=== PATIENT | female | born 1940 | race Caucasian/White ===

== ENCOUNTER 2018-08-10 19:13 | Emergency (ER) | payer MEDICARE, OTHER ==
[2018-08-10 19:57] VITALS: TEMP 98.9; O2SAT 99
--- NOTE | 2018-08-10 20:18 | CT ---
EXAM DESCRIPTION: Abdoment/Pelvis w/o Contrast CLINICAL HISTORY: 77 years Female RUQ pain COMPARISON: None TECHNIQUE: Images were obtained in axial, sagittal, and coronal planes. No intravenous contrast was administered. This exam was performed according to our departmental dose-optimization program which includes use of Automated Exposure Control, adjustment of the mA and/or kV according to patient size and/or use of iterative reconstruction technique. FINDINGS: No abnormality involving the liver, spleen, pancreas, and adrenal glands bilaterally. Prior cholecystectomy. Additional surgical clips in region of lesser sac. Common bile duct measures 1 cm in the region of the head of the. No obstructing renal calcifications bilaterally. Punctate nonobstructing calcifications right kidney. No hydronephrosis bilaterally. Unremarkable bladder. Appendix not well identified however no secondary signs for appendicitis. No bowel obstruction, perforation, or inflammation. Moderately distended small and large bowel loops likely ileus. Calcification abdominal aorta with no dilatation seen. No adenopathy. No abnormality lower lungs bilaterally. Small hiatal hernia. No acute osseous abnormality. Gluteal calcifications bilaterally. Postsurgical changes L4-5 and L5-S1 intervertebral discs. IMPRESSION: No acute intra-abdominal abnormality. Suspected mild ileus. Electronically signed by: Abigail Huerta MD 08/10/2018 8:15 PM CDT
--- NOTE | 2018-08-10 21:10 | ED.PDOC ---
History of Present Illness - General Chief Complaint: Abdominal Pain Stated Complaint: RUQ pain Time Seen by Provider: 08/10/18 21:01 Information Source: patient Exam Limitations: no limitations - History of Present Illness Initial Comments: Andree Orozco 77 y/o female came ER with sharp RUQ pain since last night felt nauseated but no vomiting has regular bowel movement,no dysuria,no hematuria,no relation to food intake.She was seen initially at [facility] and blood work done were all normal.But came to er since symptoms not better.Stated has history of peptic ulcer in the past and had EGD and colonoscopy.Had diarrhea 3 x today. Abdominal Pain Onset Location: RUQ Pain Radiation: no radiation Quality: moderate, sharpness Timing/Duration: 7-24 hours, intermittent Improving Factors: nothing Worsening Factors: nothing Associated Symptoms: diarrhea, nausea/vomiting Review of Systems - Review of Systems Constitutional: States: no symptoms reported EENTM: States: no symptoms reported Respiratory: States: no symptoms reported Cardiology: States: no symptoms reported Gastrointestinal/Abdominal: States: see HPI Genitourinary: States: no symptoms reported Musculoskeletal: States: no symptoms reported All other Systems: Reviewed and Negative, No Change from Baseline Past Medical History (General) - Patient Medical History Hx Seizures: No Hx Stroke: No Hx Dementia: No Hx Asthma: No Hx of COPD: No Hx Cardiac Disorders: No Hx Congestive Heart Failure: No Hx Pacemaker: No Hx Hypertension: No Hx Thyroid Disease: No Hx Diabetes: No Hx Gastroesophageal Reflux: No Hx Renal Disease: No Hx Cancer: No Hx of HIV: No Hx Hepatitis C: No Hx MRSA: No Hx Other PMH: Yes - idiopathic purpura Surgical History: appendectomy, cholecystectomy, tonsillectomy, other - hysterectomy;spine-neck/back lumbar - Social History Hx Alcohol Use: No - Activities of Daily Living Patient Lives Alone: Yes Grooming Ability: Independent Eating (Feeding) Ability: Independent Toileting Ability: Independent Family Medical History - Family History Mother Family History: Unknown Hx Family Congestive Heart Failure: Yes - mom Hx Family;Other: sister SLE;Brother-Alzheimers Physical Exam - Physical Exam General Appearance: Alert, Anxious, No apparent distress Eyes, Ears, Nose, Throat Exam: normal ENT inspection Neck: non-tender, full range of motion, supple, normal inspection Respiratory: chest non-tender, lungs clear, normal breath sounds Cardiovascular/Chest: normal peripheral pulses, regular rate, rhythm, no murmur Peripheral Pulses: No deficit Gastrointestinal/Abdominal: soft, no organomegaly, tenderness - RUQ no peritoneal signs Back Exam: no CVA tenderness, no vertebral tenderness Extremity: no pedal edema, no calf tenderness Neurologic: alert, oriented x 3 Progress - Progress Progress: 08/10/18 21:21 08/10/18 21:05 IV Care:Saline Lock per Protoc QSHIFT TROPONIN-I Stat Laboratory Results - last 24 hr 08/10/18 08/10/18 20:07 20:07 WBC 6.2 RBC 4.42 Hgb 13.5 Hct 39.4 MCV 89.2 MCH 30.5 MCHC 34.2 RDW 12.5 Plt Count 244 MPV 8.9 Absolute Neuts (auto) 4.00 Absolute Lymphs (auto) 1.70 Absolute Monos (auto) 0.50 Absolute Eos (auto) 0.00 Absolute Basos (auto) 0.00 Neutrophils % 64.6 Lymphocytes % 26.8 Monocytes % 7.6 Eosinophils % 0.4 L Basophils % 0.6 Sodium 134 L Potassium 3.5 L Chloride 101 Carbon Dioxide 21 Anion Gap 15.5 BUN 15 Creatinine 0.80 BUN/Creatinine Ratio 18.8 Random Glucose 100 Serum Osmolality 269.2 L Calcium 9.2 Total Bilirubin 0.8 AST 22 ALT 36 Alkaline Phosphatase 134 H Serum Total Protein 6.5 Albumin 3.8 Globulin 2.7 Albumin/Globulin Ratio 1.4 Lipase 32 08/10/18 21:45 Patient stated not allergic to Morphine it will just make her nauseated;So she will be given phenergan with it. 08/10/18 23:07 Discuss all test result with patient and daughter no changes from repeat test done here from previous ones that was done in [facility];she stated feeling better RUQ pain almost gone.No adverse effect after morphine injection - Results/Orders Results/Orders: Vital Signs - 8 hr 08/10/18 19:30 Temperature 98.9 F Pulse Rate [ 72 monitor] Respiratory 20 Rate Blood Pressure 143/76 [Left Arm] O2 Sat by Pulse 99 Oximetry - EKG/XRAY/CT CT Ordered: Yes - mild ileus no other abnormalities noted Departure - Departure Clinical Impression: Abdominal pain Qualifiers: Abdominal location: right upper quadrant Qualified Code(s): R10.11 - Right upper quadrant pain Time of Disposition: 23:10 Disposition: Discharge to Home or Self Care Condition: Fair Departure Forms: ED Discharge - Pt. Copy, Patient Portal Self Enrollment Instructions: DI for Abdominal Pain-Adult, [place] Diet Diet: bland diet, other - Avoid greasy spicy foods until better Additional Instructions: Follow up with primary Md in am 11 August 2018 for recheck;Return to ER as needed;Continue with all home medications
[2018-08-10] MEDS ORDERED: PANTOPRAZOLE SOD SUSP 40 MG PCKT PO ONE (21:44)
[2018-08-10] MEDS ORDERED: MORPHINE SULFATE INJ 10 MG/ML VIAL IM ONE (21:44)
[2018-08-10] MEDS ORDERED: PROMETHAZINE HCL INJ 25 MG/ML VIAL IM ONE (21:44)
[2018-08-10] MEDS ORDERED: SUCRALFATE 1 GM/10 ML 1 GM UD PO ONE (21:44)
[2018-08-10] MEDS ORDERED: PANTOPRAZOLE SODIUM TAB 40 MG PO ONE ×2 (21:53→21:55)
[2018-08-10 23:13] VITALS: BP 133/62
[2018-08-10] MEDS ORDERED: PROMETHAZINE TAB (ER DISP) 25 MG TAB PO ONE (23:13)
== END 2018-08-10 23:55 | disposition home or self-care (01) ==
LOC: ER 19:13
DX: R10.11 Right upper quadrant pain (principal); R19.7 Diarrhea, unspecified; R11.0 Nausea; Z87.11 Personal history of peptic ulcer disease; Z90.49 Acquired absence of other specified parts of digestive tract
CPT/HCPCS: 36415; 74176; 80053; 83690; 84484; 85025; J2270; J2550; Q0169

== ENCOUNTER 2018-09-05 14:21 | Emergency (ER) | payer OTHER ==
--- NOTE | 2018-09-05 14:38 | ED.PDOC ---
History of Present Illness - General Chief Complaint: Back Pain or Injury Stated Complaint: back pain/headache Time Seen by Provider: 09/05/18 14:38 Exam Limitations: no limitations - History of Present Illness Initial Comments: Andree Orozco 77 y/o female came to ER stating she was about to play bingo with friends at the custodial and went to sit on her husbands walker but slipped off fell on her back to the floor and back of head also hit the floor .Has dull headache back of head ; sharp pelvic pains non radiating.No LOC,no N/v,no blurry vision.Remembers incident. Occurred: just prior to arrival Severity: moderate Injuries/Pain Location: head, back Reason for Fall: slipped Loss of Consciousness: no loss of consciousness Improving Factors: rest Worsening Factors: movement Associated Symptoms (Fall): other - pain Allergies/Adverse Reactions: Allergies Alendronate [From Fosamax] Allergy (Verified 08/10/18 21:52) Aspirin Allergy (Verified 08/10/18 21:52) Banana Allergy (Verified 08/10/18 21:52) Butorphanol [From Stadol] Allergy (Verified 08/10/18 21:52) Ceftriaxone [From Rocephin] Allergy (Verified 08/10/18 21:52) Cephalexin [From Keflex] Allergy (Verified 08/10/18 21:52) Chloroquine [From Aralen] Allergy (Verified 08/10/18 21:52) Cimetidine [From Tagamet HB] Allergy (Verified 08/10/18 21:52) Ciprofloxacin [From Cipro] Allergy (Verified 08/10/18 21:52) Clarithromycin [From Biaxin] Allergy (Verified 08/10/18 21:52) Codeine Allergy (Verified 08/10/18 21:52) Diazepam [From Valium] Allergy (Verified 08/10/18 21:52) Doxycycline [From Vibramycin] Allergy (Verified 08/10/18 21:52) Eggs or Egg-derived Products Allergy (Verified 08/10/18 21:52) Fluphenazine [From Prolixin] Allergy (Verified 08/10/18 21:52) Iodine Allergy (Verified 08/10/18 21:52) Ketoprofen [From Orudis] Allergy (Verified 08/10/18 21:52) Ketorolac Tromethamine [From Toradol] Allergy (Verified 08/10/18 21:52) Metoclopramide [From Reglan] Allergy (Verified 08/10/18 21:52) Nalbuphine [From Nubain] Allergy (Verified 08/10/18 21:52) Naproxen Allergy (Verified 08/10/18 21:52) Penicillins Allergy (Verified 08/10/18 19:49) Pentazocine [From Talwin Compound] Allergy (Verified 08/10/18 21:52) Sulfa Antibiotics Allergy (Verified 08/10/18 21:52) Tetracycline Allergy (Verified 08/10/18 21:52) Topiramate [From Topamax] Allergy (Verified 08/10/18 21:52) cholestrol medications Allergy (Uncoded 08/10/18 21:52) coffee Allergy (Uncoded 08/10/18 21:52) milk Allergy (Uncoded 08/10/18 21:52) tape Allergy (Uncoded 08/10/18 21:52) Review of Systems - Review of Systems Musculoskeletal: States: see HPI, back pain Neurological: States: see HPI, headache All other Systems: Reviewed and Negative, No Change from Baseline Past Medical History (General) - Patient Medical History Hx Seizures: No Hx Stroke: No Hx Dementia: No Hx Asthma: No Hx of COPD: No Hx Cardiac Disorders: No Hx Congestive Heart Failure: No Hx Pacemaker: No Hx Hypertension: No Hx Thyroid Disease: No Hx Diabetes: No Hx Gastroesophageal Reflux: No Hx Renal Disease: No Hx Cancer: No Hx of HIV: No Hx Hepatitis C: No Hx MRSA: No Surgical History: appendectomy, cholecystectomy, other - spine- neck;lumbar;hysterectomy - Social History Hx Alcohol Use: No Physical Exam - Physical Exam General Appearance: Alert, Comfortable, No apparent distress Head Injury: no evidence of injury Eye Exam: bilateral normal ENT Exam: hearing grossly normal, no evidence of ENT injury, no dental injury Peripheral Pulses: radial,right: 2+, radial,left: 2+ Cardiovascular/Respiratory: regular rate, rhythm, no M/R/G, normal peripheral pulses, no JVD, normal breath sounds Gastrointestinal/Abdominal: normal bowel sounds, non tender, soft, no organomegaly Back Exam: no CVA tenderness, no vertebral tenderness Extremity Exam: pelvis stable, bony-point tenderness - both hips Neurologic: alert, oriented x 3 Skin Exam: normal color, warm/dry - Lorton Coma Score Best Eye Response (Lorton): (4) open spontaneously Best Verbal Response (Sancho): (5) oriented Best Motor Response (Sancho): (6) obeys commands Lorton Total: 15 Progress - EKG/XRAY/CT XRAY: pelvis - no fracture hips/pelvis CT Ordered: Yes - head-no acute abnormalities Departure - Departure Clinical Impression: Contusion of lower back and pelvis, initial encounter Fall Qualifiers: Encounter type: initial encounter Qualified Code(s): W19.XXXA - Unspecified fall, initial encounter Contusion of head Qualifiers: Encounter type: initial encounter Contusion of head detail: scalp Qualified Code(s): S00.03XA - Contusion of scalp, initial encounter Time of Disposition: 15:43 Disposition: Discharge to Home or Self Care Condition: Fair Departure Forms: ED Discharge - Pt. Copy, Patient Portal Self Enrollment Instructions: Contusion (DC) Additional Instructions: Ice pack to affected area 15 minutes 3 x a day during WAKING HOURS ONLY until better as needed;Tyleno 500mg every 6 hours as needed for pain
--- NOTE | 2018-09-05 15:05 | RAD ---
EXAM DESCRIPTION: Pelvis CLINICAL HISTORY: 77 years Female, pain COMPARISON: None. FINDINGS: Two views of the pelvis demonstrates extensive dystrophic calcifications in the gluteal regions presumably from pressure ulcers or old injection sites. The bony pelvic ring is intact and the hips appear intact on AP and frog-leg views. The superior and inferior pubic rami and the acetabular contours appear normal. IMPRESSION: Negative pelvis two views. Electronically signed by: John Mendez MD 09/05/2018 3:03 PM CDT
[2018-09-05] MEDS ORDERED: PROCHLORPERAZINE INJ 10 MG/2 ML VIAL IV ONE (15:08)
[2018-09-05] MEDS ORDERED: MORPHINE SULFATE INJ 10 MG/ML VIAL IV ONE (15:08)
--- NOTE | 2018-09-05 15:18 | CT ---
EXAM DESCRIPTION: Head CLINICAL HISTORY: fall/headache COMPARISON: None available TECHNIQUE: Non contrast cranial CT This exam was performed according to our departmental dose-optimization program, which includes automated exposure control, adjustment of the mA and/or kV according to patient size and/or use of iterative reconstruction technique. FINDINGS: Ventricles and sulci are unremarkable for age. There is no hemorrhage or mass or subdural hematoma. There are no significant white matter abnormalities detected. The calvarium is unremarkable. The visualized paranasal sinuses and the mastoids are clear. IMPRESSION: 1. Normal CT head Electronically signed by: John Mendez MD 09/05/2018 3:16 PM CDT
[2018-09-05] MEDS ORDERED: PROMETHAZINE HCL INJ 25 MG/ML VIAL IM ONE (15:40)
[2018-09-05] MEDS ORDERED: MORPHINE SULFATE INJ 10 MG/ML VIAL IM ONE (15:40)
[2018-09-05 16:52] VITALS: BP 143/78; TEMP 96.9; O2SAT 99
== END 2018-09-05 16:00 | disposition home or self-care (01) ==
LOC: ER 14:21
DX: S00.03XA Contusion of scalp, initial encounter (principal); S30.0XXA Contusion of lower back and pelvis, initial encounter; Z88.8 Allergy status to other drugs, medicaments and biological substances; Z88.1 Allergy status to other antibiotic agents; Z88.5 Allergy status to narcotic agent; Z91.041 Radiographic dye allergy status; Z88.0 Allergy status to penicillin; Z88.2 Allergy status to sulfonamides; Z88.3 Allergy status to other anti-infective agents; Z88.6 Allergy status to analgesic agent; W18.30XA Fall on same level, unspecified, initial encounter; Y92.129 Unspecified place in nursing home as the place of occurrence of the external cause
CPT/HCPCS: 70450; 72170; J2270; J2550

== ENCOUNTER 2020-02-29 09:25 | Emergency (ER) | payer MEDICARE, OTHER ==
[2020-02-29] MEDS ORDERED: ACETAMINOPHEN 500 MG TAB PO ONE (09:39)
[2020-02-29] MEDS ORDERED: SODIUM CHLORIDE 0.9% 1000ML 1,000 ML IVS ONE (09:39)
[2020-02-29] MEDS ORDERED: SODIUM CHLORIDE 0.9% (FLUSH) 10 ML SYG IV PRN (09:39)
[2020-02-29] MEDS ORDERED: ONDANSETRON INJ 4 MG/2 ML VIAL IV ONE (09:39)
--- NOTE | 2020-02-29 09:44 | ED.PDOC ---
History of Present Illness - General Time Seen by Provider: 02/29/20 09:38 Source: patient, EMS - History of Present Illness Initial Comments: 79-year-old female who was brought in by EMS from [facility] for chief complaint of body aches and diarrhea. Patient reports onset of illness 1 day ago with gradual worsening. She reports constant aching discomfort to her entire body, moderate severity, no medications taken for relief. She additionally reports a couple episodes of watery diarrhea since last night as well as nausea without emesis. She denies any fevers, chills, chest pain, cough, shortness of breath, sore throat, abdominal pain, urinary symptoms, calf pain or swelling, neck stiffness. She additionally reports moderate generalized headache. Pt tested positive for COVID-19 at [facility] and was instructed to send to the ED for medical evaluation. There is now a COVID wing at the [facility] where patients who do not require inpatient hospitalization can be managed. Other residents at the [facility] have also recently been diagnosed with COVID-19 including her who is also there. Allergies/Adverse Reactions: Allergies Alendronate [From Fosamax] Allergy (Verified 02/29/20 09:41) Aspirin Allergy (Verified 02/29/20 09:41) Banana Allergy (Verified 02/29/20 09:41) Butorphanol [From Stadol] Allergy (Verified 02/29/20 09:41) Ceftriaxone [From Rocephin] Allergy (Verified 02/29/20 09:41) Cephalexin [From Keflex] Allergy (Verified 02/29/20 09:41) Chloroquine [From Aralen] Allergy (Verified 02/29/20 09:41) Cimetidine [From Tagamet HB] Allergy (Verified 02/29/20 09:41) Ciprofloxacin [From Cipro] Allergy (Verified 02/29/20 09:41) Clarithromycin [From Biaxin] Allergy (Verified 02/29/20 09:41) Codeine Allergy (Verified 02/29/20 09:41) Diazepam [From Valium] Allergy (Verified 02/29/20 09:41) Doxycycline [From Vibramycin] Allergy (Verified 02/29/20 09:41) Eggs or Egg-derived Products Allergy (Verified 02/29/20 09:41) Fluphenazine [From Prolixin] Allergy (Verified 02/29/20 09:41) Iodine Allergy (Verified 02/29/20 09:41) Ketoprofen [From Orudis] Allergy (Verified 02/29/20 09:41) Ketorolac Tromethamine [From Toradol] Allergy (Verified 02/29/20 09:41) Metoclopramide [From Reglan] Allergy (Verified 02/29/20 09:41) Nalbuphine [From Nubain] Allergy (Verified 02/29/20 09:41) Naproxen Allergy (Verified 02/29/20 09:41) Penicillins Allergy (Verified 02/29/20 09:41) Pentazocine [From Talwin Compound] Allergy (Verified 02/29/20 09:41) Sulfa Antibiotics Allergy (Verified 02/29/20 09:41) Tetracycline Allergy (Verified 02/29/20 09:41) Topiramate [From Topamax] Allergy (Verified 02/29/20 09:41) cholestrol medications Allergy (Uncoded 02/29/20 09:41) coffee Allergy (Uncoded 02/29/20 09:41) milk Allergy (Uncoded 02/29/20 09:41) tape Allergy (Uncoded 02/29/20 09:41) Review of Systems - Review of Systems Review of Systems: 02/29/20 09:43 as per HPI All other Systems: Reviewed and Negative Past Medical History (General) - Patient Medical History Hx Seizures: No Hx Stroke: No Hx Dementia: No Hx Asthma: No Hx of COPD: No Hx Cardiac Disorders: No Hx Congestive Heart Failure: No Hx Pacemaker: No Hx Hypertension: No Hx Thyroid Disease: No Hx Diabetes: No Hx Gastroesophageal Reflux: No Hx Renal Disease: No Hx Cancer: No Hx of HIV: No Hx Hepatitis C: No Hx MRSA: No - Vaccination History Hx Tetanus, Diphtheria Vaccination: No Hx Influenza Vaccination: No Hx Pneumococcal Vaccination: No - Social History Hx Tobacco Use: No Hx Alcohol Use: No Family Medical History - Family History Mother Family History: Unknown Hx Family Congestive Heart Failure: Yes - mom Hx Family;Other: sister SLE;Brother-Alzheimers Physical Exam - Physical Exam General Appearance: Alert, Comfortable, No apparent distress Eye Exam: bilateral normal Ears, Nose, Throat: hearing grossly normal, normal ENT inspection, normal pharynx Neck: non-tender, full range of motion, supple, normal inspection Respiratory: chest non-tender, lungs clear, normal breath sounds, no respiratory distress, no accessory muscle use Cardiovascular/Chest: normal peripheral pulses, regular rate, rhythm, no edema, no gallop, no JVD, no murmur Peripheral Pulses: radial,right: 2+, radial,left: 2+ Gastrointestinal/Abdominal: non tender, soft, no organomegaly Back Exam: normal inspection, no CVA tenderness, no vertebral tenderness Extremity: normal range of motion, non-tender, normal inspection, no pedal edema, no calf tenderness, normal capillary refill Neurologic: ophthalmologist II-XII nml as tested, no motor/sensory deficits, alert, normal mood/affect, oriented x 3 Skin Exam: normal color, warm/dry Lymphatic: other - Mild tender Left anterior cervical SUSHANT Progress - Progress Progress: 02/29/20 09:44 Diarrhea, weakness -suspect due to COVID-19. Consider also other viral gastroenteritis, viral infections, flu, UTI, diverticulitis, colitis, other -pt stable, temp 99.2 F, SpO2 99% RA, vitals otherwise stable -obtain flu swab, UA, bloodwork, CXR -1 L NS bolus, Tylenol 1000 mg PO, Zofran 4 mg IV, reassess 02/29/20 10:48 -Pt has remained stable in the ED. Feeling a little better with ED treatment. Able to ambulate to bathroom independently and urinated x1. Labs reveal leukopenia and lymphocytic shift (c/w known COVID-19 infection). Flu testing negative. CMP with mild hypokalemia (replenished orally in ED), otherwise largely unremarkable. -Discussed all findings and diagnosis of COVID-19 infection with patient as well as expected clinical course and continued supportive care at the [facility]. I feel currently she is stable for discharge back to the [facility] for continued management. If the patient decompensates further or develops any other concerning symptoms, she may come back to the emergency room for repeat evaluation. Discharged back to [facility] in good condition, return warnings discussed at length. Jaziel Hamilton MD Billing #[id number] 02/29/20 09:39 Telemetry .ONCE Sodium Chloride 0.9% (Flush) [Saline Flush Syringe] 10 ml IV PRN PRN URINALYSIS Stat Laboratory Results - last 24 hr 02/29/20 02/29/20 09:45 09:45 WBC 2.9 L RBC 4.60 Hgb 14.3 Hct 41.7 MCV 90.5 MCH 31.1 H MCHC 34.3 RDW 12.7 Plt Count 245 MPV 8.6 Absolute Neuts (auto) 1.20 L Absolute Lymphs (auto) 1.30 Absolute Monos (auto) 0.40 Absolute Eos (auto) 0.00 Absolute Basos (auto) 0.00 Neutrophils % 40.6 L Lymphocytes % 44.9 Monocytes % 12.9 H Eosinophils % 0.3 L Basophils % 1.3 Sodium 136 Potassium 3.2 L Chloride 103 Carbon Dioxide 21 Anion Gap 15.2 BUN 9 Creatinine 0.54 L BUN/Creatinine Ratio 16.7 Random Glucose 93 Serum Osmolality 270.3 L Calcium 8.8 Total Bilirubin 0.4 AST 22 ALT 19 Alkaline Phosphatase 120 Serum Total Protein 6.7 Albumin 4.1 Globulin 2.6 Albumin/Globulin Ratio 1.6 - EKG/XRAY/CT XRAY: chest - no acute processes per my read Departure - Departure Clinical Impression: COVID-19 Time of Disposition: 10:48 Disposition: Discharge to SNF Condition: Good Instructions: Viral Gastroenteritis, Adult (DC), Coronavirus Disease 2019 (COVID-19) Diet: resume usual diet Activity: increase activity as tolerated Referrals: Jeffrey Saldana MD [Primary Care Provider] - 1-2 Weeks Additional Instructions: Remain well-hydrated and gradually advance your diet and activity level as tolerated. You may continue to take [id number] medications as needed for pain such as Tylenol 650 mg every 6 hours as needed and ibuprofen 600 mg every 6 hours as needed. To the ED develop concerning symptoms such as worsening abdominal pain, intractable nausea and vomiting, large volume or frequent diarrhea, chest pain shortness of breath, etc. Follow-up with your primary care physician is recommended in 3 to 5 days for repeat evaluation or sooner as needed. You will need to self quarantine for at least 10 to 14 days from the date of your positive COVID-19 test.
[2020-02-29 09:55] VITALS: O2SAT 98
--- NOTE | 2020-02-29 10:17 | RAD ---
EXAM DESCRIPTION: Chest,1 View CLINICAL HISTORY: COVID-19 positive, aching COMPARISON: None available FINDINGS: The cardiomediastinal silhouette is unremarkable. There is no airspace consolidation or pleural effusion. The bronchovascular markings are within normal limits, and the lungs are not hyperinflated. There is no pneumothorax or acute fracture. Postoperative changes in the cervical spine and right humerus, partially visualized. IMPRESSION: No radiographic evidence of pneumonia or other acute intrathoracic abnormality. Electronically signed by: Bonifacio Ley MD 02/29/2020 10:15 AM [facility]
[2020-02-29] MEDS ORDERED: POTASSIUM CHLORIDE 20 MEQ TAB PO ONE (10:31)
[2020-02-29 11:20] VITALS: TEMP 97.6
[2020-02-29 11:27] VITALS: BP 163/83
== END 2020-02-29 11:17 ==
LOC: ER 09:25
DX: U07.1 COVID-19 (principal); R19.7 Diarrhea, unspecified; E87.6 Hypokalemia
CPT/HCPCS: 36415; 71045; 80053; 85025; 87502; J2405; J7030

== ENCOUNTER 2020-03-09 22:34 | Emergency (ER) | payer MEDICARE, OTHER ==
--- NOTE | 2020-03-09 22:45 | ED.PDOC ---
History of Present Illness - General Time Seen by Provider: 03/09/20 22:36 Source: patient, RN notes reviewed, Vital Signs reviewed, EMS notes reviewed, EMS, long term records, old records Exam Limitations: no limitations - History of Present Illness Initial Comments: 79 yo pleasant F comes in from long term with the c/c of CP. Started about 2 hours ago. States she went to feed her dinner, and went to lay down when the pain started. Radiates from back to under right breast. pain constant, somewhat worse with deep inspriation, not worse with palpation. feels sharp in nature. no cardiac history. Was dx with covid 10 days ago. never had covid symptoms. denies sore throat, cough, sob. Allergies/Adverse Reactions: Allergies Alendronate [From Fosamax] Allergy (Verified 02/29/20 09:41) Aspirin Allergy (Verified 02/29/20 09:41) Banana Allergy (Verified 02/29/20 09:41) Butorphanol [From Stadol] Allergy (Verified 02/29/20 09:41) Ceftriaxone [From Rocephin] Allergy (Verified 02/29/20 09:41) Cephalexin [From Keflex] Allergy (Verified 02/29/20 09:41) Chloroquine [From Aralen] Allergy (Verified 02/29/20 09:41) Cimetidine [From Tagamet HB] Allergy (Verified 02/29/20 09:41) Ciprofloxacin [From Cipro] Allergy (Verified 02/29/20 09:41) Clarithromycin [From Biaxin] Allergy (Verified 02/29/20 09:41) Codeine Allergy (Verified 02/29/20 09:41) Diazepam [From Valium] Allergy (Verified 02/29/20 09:41) Doxycycline [From Vibramycin] Allergy (Verified 02/29/20 09:41) Eggs or Egg-derived Products Allergy (Verified 02/29/20 09:41) Fluphenazine [From Prolixin] Allergy (Verified 02/29/20 09:41) Iodine Allergy (Verified 02/29/20 09:41) Ketoprofen [From Orudis] Allergy (Verified 02/29/20 09:41) Ketorolac Tromethamine [From Toradol] Allergy (Verified 02/29/20 09:41) Metoclopramide [From Reglan] Allergy (Verified 02/29/20 09:41) Nalbuphine [From Nubain] Allergy (Verified 02/29/20 09:41) Naproxen Allergy (Verified 02/29/20 09:41) Penicillins Allergy (Verified 02/29/20 09:41) Pentazocine [From Talwin Compound] Allergy (Verified 02/29/20 09:41) Sulfa Antibiotics Allergy (Verified 02/29/20 09:41) Tetracycline Allergy (Verified 02/29/20 09:41) Topiramate [From Topamax] Allergy (Verified 02/29/20 09:41) cholestrol medications Allergy (Uncoded 02/29/20 09:41) coffee Allergy (Uncoded 02/29/20 09:41) milk Allergy (Uncoded 02/29/20 09:41) tape Allergy (Uncoded 02/29/20 09:41) Review of Systems - Review of Systems Constitutional: Denies: chills, fever, malaise EENTM: Denies: blurred vision, throat pain, mouth pain Respiratory: Denies: cough, short of breath, stridor Cardiology: States: chest pain. Denies: palpitations, syncope Gastrointestinal/Abdominal: Denies: abdominal pain, diarrhea, nausea, vomiting Genitourinary: Denies: frequency, hematuria Musculoskeletal: States: back pain. Denies: joint pain, muscle pain, neck pain Skin: Denies: change in color, rash Neurological: Denies: headache, seizure, tingling, tremors, weakness Endocrine: Denies: increased urine, unexplained weight gain, unexplained weight loss Hematologic/Lymphatic: Denies: blood clots, easy bleeding, easy bruising Past Medical History (General) - Patient Medical History Hx Seizures: No Hx Stroke: No Hx Dementia: No Hx Asthma: No Hx of COPD: No Hx Cardiac Disorders: No Hx Congestive Heart Failure: No Hx Pacemaker: No Hx Hypertension: No Hx Thyroid Disease: No Hx Diabetes: No Hx Gastroesophageal Reflux: No Hx Renal Disease: No Hx Cancer: No Hx of HIV: No Hx Hepatitis C: No Hx MRSA: No - Vaccination History Hx Tetanus, Diphtheria Vaccination: No Hx Influenza Vaccination: No Hx Pneumococcal Vaccination: No - Social History Hx Tobacco Use: No Hx Alcohol Use: No Family Medical History - Family History Mother Family History: Unknown Hx Family Congestive Heart Failure: Yes - mom Hx Family;Other: sister SLE;Brother-Alzheimers Physical Exam - Physical Exam General Appearance: Alert, Comfortable, No apparent distress, Well Developed, Well Groomed, Well Hydrated, Well Nourished Eyes, Ears, Nose, Throat Exam: PERRL/EOMI, normal ENT inspection, TMs normal Neck: non-tender, full range of motion, supple, normal inspection Respiratory: chest non-tender, lungs clear, normal breath sounds, no respiratory distress, no accessory muscle use Cardiovascular/Chest: normal peripheral pulses, regular rate, rhythm, no edema, no gallop, no JVD, no murmur Peripheral Pulses: radial,right: 2+, radial,left: 2+ Gastrointestinal/Abdominal: normal bowel sounds, non tender, soft, no organomegaly, no pulsatile mass, other - r flank pain. 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 03/10/20 01:14 cardiac score 3. given tylenol, magnesium and dexamethasone. Pain improved. The data reviewed when caring for this patient included: nurse notes, prior records, etc. The history and assessments from nurses notes were reviewed and considered, and the patient's home medication list was also reviewed and considered. My assessment and the results of testing completed here in the ED were discussed with the patient/family. All questions were answered, and they express understanding of my assessment and the plan. They have been instructed to return if their symptoms worsen, and have been asked to follow up with their primary care physician to recheck today's presenting complaint. Strict return precautions given. vss, patient discharged back to snf in stable condition. Mary Ellen Cavanaugh DO #[id number] 03/10/20 01:27 - Results/Orders Results/Orders: 03/09/20 22:38 Isolation:Airborne ONCE 03/09/20 22:45 EKG STAT Pulse Ox, Continuous Monitoring STAT 03/10/20 22:45 Pulse Ox, Continuous Monitoring STAT 03/11/20 22:45 Pulse Ox, Continuous Monitoring STAT Laboratory Results WBC 11.8 K/mm3 (4.8-10.8) H 03/09/20 23:00 RBC 4.46 M/mm3 (4.20-5.40) 03/09/20 23:00 Hgb 13.5 gm/dL (12.0-16.0) 03/09/20 23:00 Hct 39.9 % (36.0-47.0) 03/09/20 23:00 MCV 89.6 fl (81.0-99.0) 03/09/20 23:00 MCH 30.4 pg (27.0-31.0) 03/09/20 23:00 MCHC 33.9 g/dL (33.0-37.0) 03/09/20 23:00 RDW 12.8 % (11.5-14.5) 03/09/20 23:00 Plt Count 328 K/mm3 (130-400) 03/09/20 23:00 MPV 8.2 fl (7.40-10.4) 03/09/20 23:00 Absolute Neuts (auto) 9.60 K/uL (1.8-6.8) H 03/09/20 23:00 Absolute Lymphs (auto) 1.10 K/uL (1.0-3.4) 03/09/20 23:00 Absolute Monos (auto) 1.00 K/uL (0.2-0.8) H 03/09/20 23:00 Absolute Eos (auto) 0.00 K/uL (0.0-0.4) 03/09/20 23:00 Absolute Basos (auto) 0.10 K/uL (0.0-0.1) 03/09/20 23:00 Neutrophils % 81.7 % (42.0-78.0) H 03/09/20 23:00 Lymphocytes % 9.0 % (20.0-50.0) L 03/09/20 23:00 Monocytes % 8.7 % (2.0-9.0) 03/09/20 23:00 Eosinophils % 0.0 % (1.0-5.0) L 03/09/20 23:00 Basophils % 0.6 % (0.0-2.0) 03/09/20 23:00 PT 9.3 SECONDS (9.0-10.9) 03/09/20 23:00 INR 0.94 (0.9-1.15) 03/09/20 23:00 PTT (SP) 20.3 SECONDS (21.8-31.6) L 03/09/20 23:00 D-Dimer, Quantitative < 131.0 ng/ml (131-400) L 03/09/20 23:00 Sodium 132 mmol/L (135-145) L 03/09/20 23:00 Potassium 3.7 mmol/L (3.6-5.0) 03/09/20 23:00 Chloride 98 mmol/L (101-111) L 03/09/20 23:00 Carbon Dioxide 21 mmol/L (21-31) 03/09/20 23:00 Anion Gap 16.7 (12-18) 03/09/20 23:00 BUN 17 mg/dL (7-18) 03/09/20 23:00 Creatinine 0.60 mg/dL (0.6-1.3) 03/09/20 23:00 BUN/Creatinine Ratio 28.3 (10-20) H 03/09/20 23:00 Random Glucose 111 mg/dL (70-105) H 03/09/20 23:00 Serum Osmolality 266.8 mOsm/L (275-295) L 03/09/20 23:00 Calcium 8.9 mg/dL (8.4-10.2) 03/09/20 23:00 Magnesium 2.1 mg/dL (1.8-2.5) 03/09/20 23:00 Total Bilirubin 0.5 mg/dL (0.2-1.0) 03/09/20 23:00 AST 15 IU/L (10-42) 03/09/20 23:00 ALT 14 IU/L (10-60) 03/09/20 23:00 Alkaline Phosphatase 107 IU/L (42-121) 03/09/20 23:00 LD Total 104 IU/L (91-180) 03/09/20 23:00 Creatine Kinase 14 IU/L (26-140) L 03/09/20 23:00 Troponin I < 0.02 ng/mL (0.01-0.05) 03/10/20 01:05 C-Reactive Protein < 0.8 mg/dL (0-1.0) 03/09/20 23:00 B-Natriuretic Peptide 28.1 pg/ml (0-100) 03/09/20 23:00 Serum Total Protein 6.6 gm/dL (6.4-8.2) 03/09/20 23:00 Albumin 3.6 g/dl (3.2-5.5) 03/09/20 23:00 Globulin 3.0 gm/dL (2.3-3.5) 03/09/20 23:00 Albumin/Globulin Ratio 1.2 (1.1-1.9) 03/09/20 23:00 Urine Color Other (Yellow) 03/09/20 23:00 Urine Appearance Clear (Clear) 03/09/20 23:00 Urine pH 7.5 (4.5-7.8) 03/09/20 23:00 Ur Specific [place] 1.015 (1.005-1.030) 03/09/20 23:00 Urine Protein Negative mg/dL 03/09/20 23:00 Urine Glucose (UA) Negative mg/dL (Negative) 03/09/20 23:00 Urine Ketones Negative mg/dL (NEGATIVE) 03/09/20 23:00 Urine Blood Negative (Negative) 03/09/20 23:00 Urine Nitrite Negative 03/09/20 23:00 Urine Bilirubin Negative (NEGATIVE) 03/09/20 23:00 Urine Urobilinogen 0.2 mg/dL (0.2-1.0) 03/09/20 23:00 Ur Leukocyte Esterase Negative (Negative) 03/09/20 23:00 Urine RBC 0 /hpf 03/09/20 23:00 Urine WBC 0 /hpf 03/09/20 23:00 Ur Epithelial Cells 0-1 /hpf 03/09/20 23:00 Urine Bacteria 0 03/09/20 23:00 - EKG/XRAY/CT EKG: Sinus Comments: HR 75, NSR with sinus arrhytmia, no acute ischemia noted. XRAY: chest - no acute acute pathology, hyperinflation. CT: abd/pelvis: no acute pathology Departure - Departure Clinical Impression: COVID-19 Chest pain Qualifiers: Chest pain type: unspecified Qualified Code(s): R07.9 - Chest pain, unspecified Time of Disposition: 01:15 Disposition: Discharge to SNF Instructions: Pleuritic Chest Pain, Chest Pain (DC), Viral Syndrome (DC) Diet: resume usual diet Activity: increase activity as tolerated Referrals: Jeffrey Saldana MD [Primary Care Provider] - 1-5 Days
[2020-03-09 22:55] VITALS: TEMP 98.4
--- NOTE | 2020-03-09 23:07 | RAD ---
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 FINDINGS: Single view of the chest was obtained portable. Prior films were compared. Again there is hyperinflation suggesting COPD. The cardiomediastinal silhouette demonstrate to be unremarkable. The heart is not enlarged. The thoracic aorta demonstrate very minimal intimal calcification. Costophrenic angles are sharp. No areas of consolidation or masses are seen. Again there is IM hermelindo within the proximal mid shaft of the right humerus transfixing most likely prior right humeral fracture. Again there is plate fixation device lower cervical spine. IMPRESSION: HYPERINFLATION. NO ACUTE CARDIOPULMONARY DISEASE SEEN. Electronically signed by: Medhat Rocha MD 03/09/2020 11:05 PM DENTAL TECHNICIAN [employer]
[2020-03-09] MEDS ORDERED: MORPHINE SULFATE INJ 10 MG/ML VIAL IV ONE (23:34)
--- NOTE | 2020-03-09 23:35 | CT ---
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 PROCEDURE: Multiple transaxial tomograms of the abdomen and pelvis were performed from the lung bases to the symphysis pubis utilizing 2.5 mm slice thickness at 2.5 interval reconstruction, without administration of IV and oral contrast. Multiplanar reformats in the sagittal and coronal plane were generated and reviewed. An individualized dose optimization technique, Automated Exposure Control, was utilized for the performed procedure. FINDINGS: The lack of IV and oral contrast limits evaluation of solid organs, subtle lesions cannot be excluded. The lung bases demonstrate to be clear. There is a small hiatal hernia. Grossly the unopacified liver, pancreas, spleen and adrenal glands demonstrate to be within normal limits, no significant focal lesions were identified. Surgical clips within the gallbladder fossa corresponding to previous cholecystectomy. Again there are noted surgical clips within the lesser sac of the stomach similar to prior study. The kidneys demonstrate grossly unremarkable, no nephrolithiasis and/or hydronephrosis were identified. No focal masses were demonstrated. The ureters displays normal appearance with normal caliber, no hydroureter was seen. The the evaluation is somewhat compromised due to the presence of posterior fusion creating streak artifact. Grossly the unopacified stomach, small bowel and large bowel demonstrate to be within normal limits. Fecal residue and underdistention of the large bowel limits the evaluation. There is no evidence for bowel dilatation/or free air. There is fecal stasis within the large bowel. The appendix was not visualized although no significant matter changes are seen within the right lower quadrant. The urinary bladder demonstrate to be within normal limits. The uterus is absent. The aorta minimal atheromatous plaque formation. There is no retroperitoneal lymphadenopathy. There is no evidence for ascites. The the bone windows again demonstrated presence of intervertebral disc metallic graft at L4/L5 and L5/S1. Again there are injection granuloma is within the bilateral gluteal regions. IMPRESSION: NO EVIDENCE FOR NEPHROLITHIASIS AND/OR HYDRONEPHROSIS. STATUS POST CHOLECYSTECTOMY. STATUS POST INTERVERTEBRAL DISC FIXATION L4/L5 AND L5/S1. MILD FECAL STASIS. Electronically signed by: Medhat Rocha MD 03/09/2020 11:33 PM VACCINE SPECIALIST
[2020-03-09] MEDS ORDERED: HYDROcodone 5MG/APAP 325MG 1 EA TAB PO ONE (23:37)
[2020-03-10] MEDS ORDERED: IBUPROFEN 200 MG TAB PO ONE (01:00)
[2020-03-10] MEDS ORDERED: ACETAMINOPHEN 325 MG TAB PO ONE (01:02)
[2020-03-10] MEDS ORDERED: MAGNESIUM OXIDE 400 MG TAB PO ONE (01:02)
[2020-03-10] MEDS ORDERED: DEXAMETHASONE 4 MG TAB PO ONE (01:07)
[2020-03-10 01:35] VITALS: BP 125/78; O2SAT 97
== END 2020-03-10 01:43 ==
LOC: ER 22:34
DX: U07.1 COVID-19 (principal); R07.9 Chest pain, unspecified; Z88.8 Allergy status to other drugs, medicaments and biological substances; Z88.5 Allergy status to narcotic agent; Z88.1 Allergy status to other antibiotic agents; Z91.041 Radiographic dye allergy status; Z88.0 Allergy status to penicillin; Z88.2 Allergy status to sulfonamides; Z88.3 Allergy status to other anti-infective agents; Z88.6 Allergy status to analgesic agent
CPT/HCPCS: 36415; 71045; 74176; 80053; 81001; 82550; 83615; 83735; 83880; 84484; 85025; 85379; 85610; 85730; 86140; 93005; J8540

== ENCOUNTER → 2020-05-13 | Outpatient (CLI) | payer MEDICARE, OTHER ==
--- NOTE | 2020-05-16 07:55 | RAD ---
EXAM: Hip,Right 2 Views CLINICAL HISTORY: RT HIP PAIN COMPARISON STUDY: None TECHNICAL: 2 extra images of the pelvis and both hips. FINDINGS: No visible fracture. No dislocation. Mild osteopenia. Soft tissue calcifications are likely from injections. Operative changes of the lower lumbar spine are present. Vascular calcifications are seen. IMPRESSION: No visible fracture or dislocation. Electronically signed by: Ethan Mcneal MD 05/16/2020 7:53 AM [facility]
== END ==
LOC: RAD 13:22
PROVIDERS: ATTEND Internal Medicine
DX: M25.551 Pain in right hip (principal)